=== PATIENT | male | born 1965 | race Caucasian/White ===

== ENCOUNTER 2017-03-19 18:59 | Emergency (ER) | payer BC ==
[~2017-03-19] VITALS: Ht 180.3 cm; Wt 79.7 kg
[~2017-03-19 18:59] MED LIST: ASPIRIN325 MG PO; ASPIRIN81 M1 PO; CARAFATE1 GM PO; CYCLOBENZAPRINE10 MG PO; Ecotrin PO; GAVISCON LIQUI355 ML PO; NOHOMEMEDS; NORCO 5/3251 TABLET PO; OCEAN NASAL 0.645 ML BOTH NARES; PREVACID; SIMVASTATIN20 MG PO; SPIRIVA RESPIMAT4 GM IH
[2017-03-19 19:55] LABS: HEMATOCRIT 41.6 % (38.0-50.0); MCH 29.5 PG (29.0-34.0); MCHC 33.9 G/DL (30.0-36.0); MEAN PLAT.VOLUME 9.2 uM^3 (9.0-12.4); PLATELET COUNT 206 K/uL (156-360); RBC DIS.WIDTH-CV 13.3 % (11.8-14.6); RBC DIS.WIDTH-SD 42.8 % (39-53); RED BLOOD COUNT 4.78 M/uL (4.00-5.50); WHITE BLOOD COUNT 6.8 K/uL (4.1-10.2)
[2017-03-19 20:04] LABS: CHLORIDE 106 mEq/L (99-109); POTASSIUM 4.2 mEq/L (3.7-5.4); SODIUM 141 mEq/L (136-147)
[2017-03-19 20:06] LABS: GLUCOSE 147 mg/dL (70-99)
[2017-03-19 20:07] LABS: ANION GAP 9 MEQ/L (2-14)
[2017-03-19 20:10] LABS: GFR ESTIMATE (CALCULATED) 52 mL/min/; UREA NITROGEN (BUN) 15 mg/dL (9-23)
[2017-03-19 20:19] LABS: TROP-I INTERPRETATION NEGATIVE; TROPONIN-I < 0.01 ng/mL (0.0-0.30)
[2017-03-19 22:35] LABS: TROP-I INTERPRETATION NEGATIVE; TROPONIN-I < 0.01 ng/mL (0.0-0.30)
[2017-03-19] MEDS ORDERED: FLEXERIL10 MG PO (22:54)
[2017-03-19 23:58] VITALS: BP 117/62
== END 2017-03-20 00:01 | disposition home or self-care (01) ==
LOC: EME → EDBD 18:59 → EME 03-20 00:01
PROVIDERS: Emergency Medicine
DX: M54.2 Cervicalgia (principal); R42 Dizziness and giddiness; E78.5 Hyperlipidemia, unspecified; F17.200 Nicotine dependence, unspecified, uncomplicated
CPT/HCPCS: 71020; 80048; 84484; 85027; 93005; 99281; 99285; J7030

== ENCOUNTER 2017-08-16 17:37 | Observation (INO) | payer BC ==
[~2017-08-16] VITALS: Ht 177.8 cm; Wt 74.0 kg
[~2017-08-16 17:37] MED LIST changes: +FLEXERIL10 MG PO
[2017-08-16 18:14] LABS: HEMATOCRIT 43.5 % (38.0-50.0); MCH 29.1 PG (29.0-34.0); MCHC 33.8 G/DL (30.0-36.0); MEAN PLAT.VOLUME 9.2 uM^3 (9.0-12.4); PLATELET COUNT 226 K/uL (156-360); RBC DIS.WIDTH-CV 13.5 % (11.8-14.6); RBC DIS.WIDTH-SD 42.3 % (39-53); RED BLOOD COUNT 5.06 M/uL (4.00-5.50); WHITE BLOOD COUNT 8.3 K/uL (4.1-10.2)
[2017-08-16 18:23] LABS: CHLORIDE 106 mEq/L (99-109); POTASSIUM 3.9 mEq/L (3.7-5.4); SODIUM 139 mEq/L (136-147)
[2017-08-16 18:24] LABS: GLUCOSE 106 mg/dL (70-99)
[2017-08-16 18:26] LABS: ANION GAP 8 MEQ/L (2-14)
[2017-08-16 18:28] LABS: GFR ESTIMATE (CALCULATED) > 59 mL/min/
[2017-08-16 18:29] LABS: UREA NITROGEN (BUN) 13 mg/dL (9-23)
[2017-08-16 18:35] LABS: TROP-I INTERPRETATION NEGATIVE; TROPONIN-I < 0.01 ng/mL (0.0-0.30)
[2017-08-16 19:30] LABS: DIGOXIN 0.8 ng/mL (0.8-2.0)
[2017-08-16] MEDS ORDERED: PROAIR HFA8.5 GM IH (20:06)
[2017-08-16] MEDS ORDERED: ARTIFICIAL TEAR1510 BOTH EYES (20:07)
[2017-08-16] MEDS ORDERED: LANOXIN125 MCG PO (20:07)
[2017-08-16] MEDS ORDERED: FLONASE16 G1 BOTH NARES (20:08)
[2017-08-16] MEDS ORDERED: VITAMIN D22000 UNIT PO (20:09)
[2017-08-16] MEDS ORDERED: THERATRUM COMP1 EAC3 PO (20:09)
[2017-08-16] MEDS ORDERED: VITAMIN C1000 MG PO (20:09)
[2017-08-16] MEDS ORDERED: ALUM-MAG HYDRO360 ML PO (20:12)
[2017-08-16 22:36] VITALS: BP 130/66
[2017-08-16 22:55] LABS: TROP-I INTERPRETATION NEGATIVE; TROPONIN-I < 0.01 ng/mL (0.0-0.30)
[2017-08-17 04:34] VITALS: BP 114/69
[2017-08-17 05:22] LABS: HEMATOCRIT 41.9 % (38.0-50.0); MCHC 33.4 G/DL (30.0-36.0); MCV 86.7 FL (86-99); MEAN PLAT.VOLUME 9.3 uM^3 (9.0-12.4); PLATELET COUNT 212 K/uL (156-360); RBC DIS.WIDTH-CV 13.5 % (11.8-14.6); RBC DIS.WIDTH-SD 42.9 % (39-53); RED BLOOD COUNT 4.83 M/uL (4.00-5.50); WHITE BLOOD COUNT 7.8 K/uL (4.1-10.2)
[2017-08-17 05:44] LABS: TROP-I INTERPRETATION NEGATIVE; TROPONIN-I < 0.01 ng/mL (0.0-0.30)
[2017-08-17 06:00] LABS: ANION GAP 7 MEQ/L (2-14); CHLORIDE 106 MEQ/L (99-109); GFR ESTIMATE (CALCULATED) > 59 mL/min/; GLUCOSE 114 mg/dL (70-99); POTASSIUM 4.2 MEQ/L (3.7-5.4); SAMPLE HEMOLYSIS CHECK 0; SAMPLE ICTERIC CHECK 0; SAMPLE LIPEMIA CHECK 0; SODIUM 143 MEQ/L (136-147); UREA NITROGEN (BUN) 13 mg/dL (9-23)
[2017-08-17 07:12] VITALS: BP 118/65
[2017-08-17 08:43] LABS: POINT-OF-CARE METER ID UU13113700
[2017-08-17] MEDS ORDERED: CARDIZEM CD,CA180 MG PO (09:54)
== END 2017-08-17 10:56 | disposition home or self-care (01) ==
LOC: EME 17:37 → 5WEST 21:38 → EDOF 21:38 → ENRESERV 21:47 → 5WEST 22:31
PROVIDERS: Hospitalist
DX: R07.9 Chest pain, unspecified (principal); R94.31 Abnormal electrocardiogram [ECG] [EKG]; E78.5 Hyperlipidemia, unspecified; R00.0 Tachycardia, unspecified; J44.9 Chronic obstructive pulmonary disease, unspecified; R11.0 Nausea; I27.20 Pulmonary hypertension, unspecified; Z79.82 Long term (current) use of aspirin; Z87.891 Personal history of nicotine dependence; Z82.49 Family history of ischemic heart disease and other diseases of the circulatory system
CPT/HCPCS: 71020; 80048; 80162; 82948; 84484; 85027; 93005; 93306; 94640; 99202; 99281; 99284; G0378; J1650; J2405; J7030